=== PATIENT | male | born 1980 | race Caucasian/White ===

== ENCOUNTER → 2018-11-12 | Outpatient (CLI) | payer MEDICARE ==
[~2018-11-12] MED LIST: HYDR-1231 PO; OXYC-143 PO
--- NOTE | 2018-11-12 15:22 | Diagnostic Imaging Report ---
PROCEDURE: MRI right joint upper extremity without contrast. TECHNIQUE: Multiplanar, multisequence [id number] MRI of the right upper extremity was accomplished. INDICATION: Right shoulder injury. COMPARISON: None. FINDINGS: No acute fracture or dislocation is seen in the right shoulder. Alignment is normal. Small subcortical cyst-like changes are seen at the lateral humeral head. No glenohumeral joint effusion is seen. There is minimal fluid in the subacromial-subdeltoid bursa. The supraspinatus tendon demonstrates tendinosis with low-grade partial-thickness tearing at the bursal surface under the acromion, as well as at the articular surface at the insertion. A high-grade partial-thickness or full-thickness tear is not seen. The infraspinatus tendon demonstrates minimal undersurface fraying with no high-grade partial-thickness or full-thickness tear. The teres minor tendon is intact. There is tendinosis of the subscapularis tendon with low-grade partial-thickness tearing distally at the insertion. The long head of the biceps tendon appears normal in course and signal. The glenoid labrum is suboptimally evaluated in the absence of intra-articular contrast. No para-labral cysts are seen. The acromion has a curved undersurface without hooking. The coracoclavicular and coracoacromial ligaments are intact. There are moderate degenerative changes in the right acromioclavicular joint. The soft tissues about the right shoulder are otherwise unremarkable. IMPRESSION: 1. Areas of low-grade partial-thickness tearing in the right rotator cuff with no high-grade partial-thickness or full-thickness tear seen. 2. Moderate degenerative changes in the right acromioclavicular joint. 3. Mild subacromial-subdeltoid bursitis. Dictated by: Dictated on workstation # [id number]
== END ==
LOC: RAD 14:09
PROVIDERS: ATTEND Family Medicine
DX: S46.011A Strain of muscle(s) and tendon(s) of the rotator cuff of right shoulder, initial encounter (principal); M19.011 Primary osteoarthritis, right shoulder; M75.51 Bursitis of right shoulder
CPT/HCPCS: 73221

== ENCOUNTER → 2019-04-15 | Outpatient (CLI) | payer MEDICARE ==
--- NOTE | 2019-04-15 19:07 | Diagnostic Imaging Report ---
PROCEDURE: MRI right joint upper extremity without contrast. TECHNIQUE: Multiplanar, multisequence non contrast-enhanced MRI of the right upper extremity was accomplished. INDICATION: Injury to the right elbow and pain. The marrow signal intensity of the distal humerus as well as the proximal radius and ulna appears normal. No marrow edema or fracture is seen. No elbow joint effusion is detected. Triceps tendon appears to be intact. The biceps and the brachialis tendons appear to be intact. Flexor and extensor mechanism appears unremarkable. Medial and lateral collateral ligament complexes appear to be intact. IMPRESSION: Unremarkable MRI of the right elbow. Dictated by: Dictated on workstation # [id number]
== END ==
LOC: RAD 17:40
PROVIDERS: ATTEND Family Medicine
DX: S59.901A Unspecified injury of right elbow, initial encounter (principal)
CPT/HCPCS: 73221

== ENCOUNTER → 2020-03-05 | Outpatient (CLI) | payer MEDICARE ==
[~2020-03-05] MED LIST changes: +CATHETER FLUSH 10 ML SYR IV PRN; +GADOBUTROL 10 MMOL/10 ML (GADAVIST) VIAL IV ONE
--- NOTE | 2020-03-05 11:21 | Diagnostic Imaging Report ---
Clinical Indication: Patient with increased spine pain. Patient has had stem cell therapy, paraplegic but able to walk with devices. Exams: 1: MRI of the thoracic spine performed without and with 10 mL of Gadavist IV contrast. Sequences include sagittal T2, sagittal T1, sagittal T2 fat-sat, axial T2, axial T1, axial T1 post IV contrast, and sagittal T1 fat-sat post IV contrast. 2: MRI of the lumbar spine performed without and with IV contrast in conjunction with MRI of the thoracic spine. Sequences include sagittal T2, sagittal T1, sagittal T2 fat-sat, axial T2, axial T1, sagittal T1 fat-sat post IV contrast, and axial T1 post IV contrast. COMPARISON: CT scan of the thoracic and lumbar spine with contrast dated 03/19/2014. FINDINGS: There is no abnormal IV contrast enhancement seen on the MRI of the thoracic and lumbar spine. There are postop changes to the thoracolumbar spine seen with direct left lateral fusion from the T11-L1 with strut graft in place at the T12 region. There is susceptibility artifact seen on the thoracic and lumbar MRI. This is better seen on comparison CT scan. There is minimal kyphosis centered at the T12 level. There is decreased cord caliber with intramedullary increased T2 signal seen at the T12 vertebral body level involving the conus medullaris. Conus medullaris tip is seen roughly at the mid T12 level. The remainder of the thoracic cord has normal cord caliber with no abnormal signal. The remainder of the cauda equina nerve roots are unremarkable. THORACIC SPINE: Thoracic spine has normal alignment with no acute fracture or dislocation. There is a small left paracentral disc bulge at the T7-T8 disc space region which causes minimal encroachment upon the central canal. There is no other significant thoracic disc bulge seen. There is a chronic compression deformity involving the upper endplates of the T2, T3, and T4 vertebrae. This is also noted on the prior CT and stable. The thoracic spine shows no significant central canal or neural foramen narrowing. The interbody disc heights are within normal limits. There is no significant paraspinal soft tissue abnormality. LUMBAR SPINE: Lumbar spine is normal in alignment with no acute fracture or dislocation. L1-L2: Unremarkable. L2-L3: There is no significant posterior disc bulge. There is no significant central spinal canal or neural foramen narrowing. L3-L4: Unremarkable. L4-L5: There is a small broad posterior disk bulge. There is no significant central canal narrowing. There is mild to moderate right neural foramen narrowing and mild left neural foramen narrowing. L5-S1: There is mild loss of disc space height. There is chronic mild compression deformity of the inferior endplate of the L5 vertebra. There is no significant central canal or neural foramen narrowing. IMPRESSION: 1: Again seen, T12-L1 direct left lateral interbody fusion with strut graft at the T12 level. There is a susceptibility artifact associated with this area. The hardware is better seen on the comparison CT scan. 2: There is no abnormal IV contrast enhancement seen on this exam. 3: There is thoracic and lumbar spine degenerative disease, as described above. 4: There is myelomalacia involving the distal thoracic spinal cord/conus medullaris. Dictated by: Dictated on workstation # [id number]
== END ==
LOC: RAD 08:00
DX: M47.814 Spondylosis without myelopathy or radiculopathy, thoracic region (principal); M47.816 Spondylosis without myelopathy or radiculopathy, lumbar region; M51.37 Other intervertebral disc degeneration, lumbosacral region; M43.8X7 Other specified deforming dorsopathies, lumbosacral region; M51.26 Other intervertebral disc displacement, lumbar region; M48.061 Spinal stenosis, lumbar region without neurogenic claudication; M51.24 Other intervertebral disc displacement, thoracic region; M43.8X4 Other specified deforming dorsopathies, thoracic region; G82.20 Paraplegia, unspecified; K59.2 Neurogenic bowel, not elsewhere classified; N31.9 Neuromuscular dysfunction of bladder, unspecified; Z98.1 Arthrodesis status
CPT/HCPCS: 72157; 72158

== ENCOUNTER 2021-07-27 13:30 | Observation (INO) | payer OTHER, MEDICARE ==
[~2021-07-27] VITALS: Ht 195.6 cm; Wt 97.5 kg
[~2021-07-27 13:30] MED LIST changes: -CATHETER FLUSH 10 ML SYR IV PRN; -GADOBUTROL 10 MMOL/10 ML (GADAVIST) VIAL IV ONE
[2021-07-27] MEDS ORDERED: ORPHENADRINE 60 MG/2 ML (NORFLEX) AMP (ED ONLY) IM ONE (13:45)
[2021-07-27] MEDS ORDERED: KETOROLAC 60 MG/2 ML VIAL IM ONE (13:45)
--- NOTE | 2021-07-27 13:49 | ED Back Pain ---
General Stated Complaint: FALL - L LEG PAIN Source of Information: Patient Exam Limitations: No Limitations (RIRI BOURNE) History of Present Illness Date Seen by Provider: Jul 27, 2021 Time Seen by Provider: 13:43 Initial Comments Patient is a 41-year-old male who presents ED with left leg pain. Patient is paraplegic. Does have some feeling to his lower extremities. He Is able to stand but uses a walker. He does ambulate with walker. Slipped 1 hour ago while going to daycare to pickling grader his daughter. He states his left leg folded inwards and landed awkwardly on his leg. Reports contusion or possible fracture to his mid lockwood. Reports zapping type pain in his lower legs. Denies taking thing for pain. Does wear a brace daily. History of previous fracture in his right leg secondary to a fall. Denies hit his head, loss conscious, nausea, vomiting, diarrhea, fever, chills. (RIRI BOURNE) Allergies and Home Medications Allergies Coded Allergies: Penicillins (Unverified Allergy, Unknown, 11/04/14) erythromycin base (Unverified Allergy, Unknown, 11/04/14) Patient Home Medication List Home Medication List Reviewed: Yes (RIRI BOURNE) Oxycodone Hcl/Acetaminophen (Oxycodone-Apap 7.5/325 Mg Tab) 1 Tab Tablet, 1 TAB PO Q4H PRN for PAIN Prescribed by: ALEXX RIVAS on 11/04/14 8721 Review of Systems Constitutional: No chills, No diaphoresis, No dizziness, No fever, No malaise EENTM: No blurred vision, No eye pain Respiratory: No cough, No dyspnea on exertion Cardiovascular: No chest pain Gastrointestinal: No nausea, No vomiting Genitourinary: No decreased output, No discharge Musculoskeletal: No back pain, No joint pain; muscle pain, muscle stiffness Skin: change in color (RIRI BOURNE) Past Klcther-Wfqyql-Tahbdm Hx Past Medical History Adenoidectomy, Tonsillectomy Spinal Cord Injury (RIRI BOURNE) Family Medical History No Pertinent Family Hx (RIRI BOURNE) Physical Exam Vital Signs Vital Signs - First Documented 07/27/21 13:40 Temp 36.3 Pulse 95 Resp 20 B/P (MAP) 132/84 (100) Pulse Ox 98 O2 Delivery Room Air (NIKKI ROMERO MD) Vital Signs Capillary Refill : (RIRI BOURNE) Height, Weight, BMI Height: 6'5" Weight: 220lbs. oz. 99.000028sg; BMI Method:Stated General Appearance: No Apparent Distress, WD/WN HEENT: PERRL/EOMI, TMs Normal, Normal ENT Inspection Neck: Full Range of Motion, Normal Inspection, Non Tender, Supple Cardiovascular: Regular Rate, Rhythm, No Edema, No Gallop, No Murmur Respiratory: Chest Non Tender, Lungs Clear, Normal Breath Sounds, No Accessory Muscle Use Gastrointestinal: Normal Bowel Sounds, No Pulsatile Mass, Non Tender, Soft Back: Normal Inspection, No CVA Tenderness, No Vertebral Tenderness Extremity: Other (Left mid lockwood hematoma, subtle deformity with tenderness. Ankle tenderness. Limited range of motion. Subtle sensation on palpation) (RIRI BOURNE) Progress/Results/Core Measures Results/Orders Medications Given in ED Current Medications Medications Dose Ordered Sig/Bonnie Route Start Time Stop Time Status Last Admin Dose Admin Acetaminophen/ Hydrocodone Bitart 1 ea ONCE ONCE PO 07/27/21 14:15 07/27/21 14:16 DC 07/27/21 14:06 1 EA (NIKKI ROMERO MD) Vital Signs/I&O 07/27/21 13:40 Temp 36.3 Pulse 95 Resp 20 B/P (MAP) 132/84 (100) Pulse Ox 98 O2 Delivery Room Air (NIKKI ROMERO MD) Departure Communication (Admissions) Time/Spoke to Admitting Phy: 15:18 Unstable left lower leg fracture. Discussed patient with Dr. Malik who recommends n.p.o. after midnight and surgery tomorrow. Admit to observation. Neurovascular intact left Patient states he does walk. Patient uses afo braces. Patient was placed in a long-leg posterior splint. Patient was given a dose of pain medication. Lab work pending. Dr. Malik will put acute orders in. Neurovascularly intact pre and post splint. No evidence of compartment syndrome. (RIRI BOURNE) Impression Primary Impression: Leg fracture, left Disposition: 09 ADMITTED INPATIENT Condition: Stable Admissions Decision to Admit Reason: Admit from ER (General) Decision to Admit/Date: Jul 27, 2021 Time/Decision to Admit Time: 15:18 (RIRI BOURNE) Departure-Patient Inst. Referrals: KAITLYNN ROCHA MD (PCP/Family) Primary Care Physician ATTENDING PHYSICIAN NOTE: I was physically present as attending physician in the emergency department during the care of this patient, but I was not directly involved in the decision making or delivery of care for this patient. (NIKKI ROMERO MD) RIRI BOURNE Jul 27, 2021 13:48 NIKKI ROMERO MD Jul 27, 2021 20:59
[2021-07-27] MEDS ORDERED: HYDROcodone/APAP 5 MG/325 MG (LORTAB) TAB PO ONE (14:15)
--- NOTE | 2021-07-27 14:44 | Diagnostic Imaging Report ---
INDICATION: Fall. Injury. Pain COMPARISON: None FINDINGS: 3 radiographic views of the left ankle were obtained and demonstrate multiple acute fractures. There is acute oblique oriented fracture of the mid to distal fibular shaft. There is mild medial displacement of the distal fracture fragment. Note is also made of acute nondisplaced obliquely oriented fracture of the distal fibular shaft. There is also acute nondisplaced fracture through the base of the medial malleolus. Additionally, note is made of mild lateral subluxation of the talus in respect to the tibia suggestive of underlying ankle instability. No unexpected radiopaque foreign bodies are seen. IMPRESSION: 1. Multiple acute fractures of the left tibia and fibula as described above. 2. Disruption of ankle mortise. Dictated by: Dictated on workstation # [id number]
--- NOTE | 2021-07-27 15:01 | Diagnostic Imaging Report ---
INDICATION: Fall. Pain. Injury. COMPARISON: 07/27/2021. FINDINGS: Multiple radiographic views of the left tibia and fibula were obtained. There is acute fracture involving the junction of the mid and distal third portions of the fibular shaft. There is mild medial displacement of the distal fracture fragment. Acute nondisplaced fracture through the base of the medial malleolus of the distal tibia is also noted. Additionally, there is acute obliquely oriented minimally displaced fracture of the distal fibular shaft. Disruption of the ankle mortise is seen on dedicated ankle radiographs is much less conspicuous on this exam. No unexpected radiopaque foreign bodies are seen. IMPRESSION: 1. Multiple acute fractures of the left tibia and fibula as described above. Dictated by: Dictated on workstation # [id number]
[2021-07-27 15:42] LABS: BASOPHILS % (AUTO) 0 % (0-10); EOSINOPHILS # (AUTO) 0.2 10^3/uL (0.0-0.3); EOSINOPHILS % (AUTO) 2 % (0-10); HEMATOCRIT 49 % (40-54); HEMOGLOBIN 16.2 g/dL (13.3-17.7); LYMPHOCYTES # (AUTO) 2.5 10^3/uL (1.0-4.0); LYMPHOCYTES % (AUTO) 24 % (12-44); MEAN CORPUSCULAR HEMOGLOBIN 30 pg (25-34); MEAN CORPUSCULAR HGB CONC 33 g/dL (32-36); MEAN CORPUSCULAR VOLUME 90 fL (80-99); MEAN PLATELET VOLUME 9.6 fL (9.0-12.2); MONOCYTES # (AUTO) 0.5 10^3/uL (0.0-1.0); MONOCYTES % (AUTO) 5 % (0-12); NEUTROPHILS # (AUTO) 6.9 10^3/uL (1.8-7.8); NEUTROPHILS % (AUTO) 68 % (42-75); PLATELET COUNT 307 10^3/uL (130-400); WHITE BLOOD COUNT 10.2 10^3/uL (4.3-11.0)
[2021-07-27 15:54] LABS: ALBUMIN 4.8 GM/DL (3.2-4.5); CHLORIDE 105 MMOL/L (98-107); POTASSIUM 4.3 MMOL/L (3.6-5.0); SODIUM 139 MMOL/L (135-145)
[2021-07-27 15:56] LABS: CALCIUM 9.5 MG/DL (8.5-10.1)
[2021-07-27 15:57] LABS: GLUCOSE 88 MG/DL (70-105); TOTAL PROTEIN 8.5 GM/DL (6.4-8.2)
[2021-07-27 15:58] LABS: CARBON DIOXIDE 22 MMOL/L (21-32)
[2021-07-27 15:59] LABS: BILIRUBIN,TOTAL 0.5 MG/DL (0.1-1.0)
[2021-07-27 16:00] LABS: ALKALINE PHOSPHATASE 62 U/L (40-136); GFR ESTIMATED 115
[2021-07-27 16:01] LABS: BUN/CREATININE RATIO 21
[2021-07-27 16:03] LABS: ALANINE AMINOTRANSFERASE 40 U/L (0-55)
[2021-07-27 17:18] VITALS: BP 121/75
[2021-07-27 19:31] VITALS: BP 119/67
[2021-07-27] MEDS: morphine INJ 4 MG/ML 1 ML (VIAL/SYRINGE) IVP PRN (21:53)
[2021-07-27 23:50] VITALS: BP 105/61
[2021-07-28] VITALS (12 sets, daily range): BP systolic 98–135; BP diastolic 59–93
[2021-07-28] MEDS: morphine INJ 4 MG/ML 1 ML (VIAL/SYRINGE) IVP PRN ×6 (01:27→18:23)
--- NOTE | 2021-07-28 08:15 | History & Physical Orthopedic ---
History and Physical Subjective Date of Exam 07/28/21 Chief Complaint Left Leg Injury HPI/Events since last exam slip and fall yesterday, seen in ER for instability of ankle, diagnosed with left tibia and fibula fractures, I was asked to manage the fractures, situation complicated by patient's history of SCI with loss of sensation and no motor movement below his knee, he does still ambulate with AFO's and a walker Medical, Surgical History Adenoidectomy, Tonsillectomy Spinal Cord Injury Social History Noncontributory Family History Noncontributory Review of Systems - Allergies: Coded Allergies: Penicillins (Unverified Allergy, Unknown, 11/04/14) erythromycin base (Unverified Allergy, Unknown, 11/04/14) Home Meds Active Scripts Oxycodone Hcl/Acetaminophen (Oxycodone-Apap 7.5/325 Mg Tab) 1 Tab Tablet, 1 TAB PO Q4H PRN for PAIN, #20 TAB 0 Refills Prov:ALEXX RIVAS 11/04/14 Objective Exam Cardiovascular: S1 and S2 present Respiratory: Normal nonlabored breathing with symmetric chest expansion Gastrointestinal: Soft, NT Extremities: Left leg in long leg splint, not able to move toes due to SCI, cap refill brisk Neurologic: No sensation to light touch in left foot Vital Signs Vital Signs Date Time Temp Pulse Resp B/P (MAP) Pulse Ox O2 Delivery O2 Flow Rate FiO2 07/28/21 04:12 36.6 89 18 118/72 (87) 95 Room Air 07/27/21 23:50 36.5 91 18 105/61 (76) 97 Room Air 07/27/21 21:00 97 Room Air 07/27/21 19:31 36.7 83 19 119/67 (84) 96 Room Air 07/27/21 17:18 96 Room Air 07/27/21 17:18 36.8 83 18 121/75 (90) 96 Room Air 07/27/21 16:52 82 20 110/72 99 Room Air 07/27/21 13:40 36.3 95 20 132/84 (100) 98 Room Air I & O 07/28/21 07:00 Intake Total 600 ml Output Total 550 ml Balance 50 ml Lab Results Laboratory Tests 07/27/21 15:35: White Blood Count 10.2, Red Blood Count 5.41, Hemoglobin 16.2, Hematocrit 49, Mean Corpuscular Volume 90, Mean Corpuscular Hemoglobin 30, Mean Corpuscular Hemoglobin Concent 33, Red Cell Distribution Width 12.1, Platelet Count 307, Mean Platelet Volume 9.6, Immature Granulocyte % (Auto) 1, Neutrophils (%) (Auto) 68, Lymphocytes (%) (Auto) 24, Monocytes (%) (Auto) 5, Eosinophils (%) (Auto) 2, Basophils (%) (Auto) 0, Neutrophils # (Auto) 6.9, Lymphocytes # (Auto) 2.5, Monocytes # (Auto) 0.5, Eosinophils # (Auto) 0.2, Basophils # (Auto) 0.0, Immature Granulocyte # (Auto) 0.1, Sodium Level 139, Potassium Level 4.3, Chloride Level 105, Carbon Dioxide Level 22, Anion Gap 12, Blood Urea Nitrogen 17, Creatinine 0.80, Estimat Glomerular Filtration Rate 115, BUN/Creatinine Ratio 21, Glucose Level 88, Calcium Level 9.5, Corrected Calcium , Total Bilirubin 0.5, Aspartate Amino Transf (AST/SGOT) 34, Alanine Aminotransferase (ALT/SGPT) 40, Alkaline Phosphatase 62, Total Protein 8.5H, Albumin 4.8H 07/27/21 22:06: SARS-CoV-2 RNA (RT-PCR) Not Detected Imaging Multiple views of the left tibia and fibula were reviewed dated 07/27/21 and demonstrated a short oblique fracture of the junction of the middle and distal thirds of the tibia, nondisplaced medial malleolus fracture below the joint level, and a distal fibula fracture Assessment and Plan Assessment Left Tibial Shaft Fracture Left Medial Malleolus Fracture Left Distal Fibula Fracture Problem List Left Tibial Shaft Fracture Left Medial Malleolus Fracture Left Distal Fibula Fracture Plan I have recommended intramedullary nailing of the left tibial shaft fracture, possible fixation of the medial malleolus fracture and possible fixation of the distal fibula fracture. Nature of the procedure and the postoperative course were discussed. Risks and benefits were discussed. Discussed limiting weightbearing for a period of time secondary to fractures around the ankle. Chip dickerson plan to proceed later this AM. Final Diagonsis Left Tibial Shaft Fracture Left Medial Malleolus Fracture Left Distal Fibula Fracture Level of the visit: Level 3 (preop) ZAINA ARREOLA MD Jul 28, 2021 08:15
[2021-07-28] MEDS ORDERED: LIDOCAINE PF 2% 5 ML (XYLOCAINE) VIAL ONE (08:16)
[2021-07-28] MEDS ORDERED: ONDANSETRON 4 MG/2 ML (SDV) Z0FRAN ONE (08:16)
[2021-07-28] MEDS ORDERED: SEVOFLURANE (ULTANE) 15 ML INHAL SOLN ONE ×3 (08:16→11:36)
[2021-07-28] MEDS ORDERED: fentaNYL INJ 100 MCG/2 ML AMP ONE (08:16)
[2021-07-28] MEDS ORDERED: proPOfol 200 MG/20 ML (DIPRIVAN) VIAL IV ONE ×2 (08:16→11:11)
[2021-07-28] MEDS ORDERED: MIDAZOLAM 2 MG/2 ML (VERSED) VIAL ONE (08:16)
[2021-07-28] MEDS ORDERED: CLINDAMYCIN 600 MG/50 ML IVPB 50 ML IV NR (09:00)
[2021-07-28] MEDS ORDERED: CLINDAMYCIN 600 MG/4ML (CLEOCIN) VIAL ONE (09:27)
[2021-07-28] MEDS ORDERED: NS (IVPB) 100 ML ONE (09:27)
[2021-07-28] MEDS ORDERED: NEO/POLY/BAC (NEOSPORIN) OINT 15 GM TUBE ONE (09:28)
[2021-07-28] MEDS: LACTATED RINGERS 1,000 ML IV PRN ×2 (09:32→10:50)
[2021-07-28] MEDS ORDERED: ROCURONIUM 50 MG/5 ML (ZEMURON) VIAL IV ONE (10:18)
[2021-07-28] MEDS: BUPIVACAINE 0.25% 30 ML (SENSORCAINE) VIAL ONE ×2 (10:59→12:00)
[2021-07-28] MEDS ORDERED: ONDANSETRON 4 MG/2 ML (SDV) Z0FRAN IVP PRN (12:45)
[2021-07-28] MEDS ORDERED: MEPERIDINE (DEMEROL) INJ 50 MG/ML IVP ONE (12:45)
[2021-07-28] MEDS ORDERED: fentaNYL INJ 100 MCG/2 ML AMP IVP ONE (12:45)
[2021-07-28] MEDS ORDERED: morphine INJ 10 MG/ML 1ML (SYR OR VIAL) IVP ONE (12:45)
--- NOTE | 2021-07-28 12:53 | Operative Report - Ortho ---
Operative Report Surgeon (s)/Plating Stripper (s) Surgeon ZAINA ARREOLA MD Plating Stripper n/a Pre-Operative Diagnosis Left Tibial Shaft Fracture, Left Bimalleolar Ankle Fracture Post-Operative Diagnosis same Operative Report Date of Procedure: Jul 28, 2021 Name of Procedure Performed: 1) Intramedullary Nailing of Left Tibial Shaft Fracture 2) Open Reduction and Internal Fixation of Left Bimalleolar Ankle Fracture Description & Findings After obtaining informed consent and marking the patient, patient did receive intravenous antibiotics. Taken to the operating room and general anesthesia was induced. Surgical timeout was taken. The left lower extremity was prepped and draped in the usual sterile fashion. Attention was initially turned to the tibia fracture, incision was made from inferior border of patella to anterior tibial tubercle. It was chose to split the patellar tendon. Awl was used to make an entry point. Guide wire was inserted down to the level of the fracture. Fracture was reduced. Guide wire was passed across the fracture site and positioned at the physeal scar. Measurement was taken which was 400 mm. Sequential reaming was began with a 9 and reamed to a 12.5. An 11 mm by 390 mm nail was selected and assembled on the back table. The nail was inserted over the guide wire initially by hand and then with a mallet. C-arm was used to visualize the nail passing across the fracture site and reduction was maintained. Nail was seated just proximal to the physeal scar. 2 distal screws were placed through the distal interlocks using free hand technique. The nail was then back tapped to compress the fracture site. 2 screws were then placed through the provided guide with the 2nd being in a dynamic position. Wounds were irrigated with normal saline. The arthrotomy was closed in layered fashion with 0 ethibond, 2-0 vicryl, and a combination of 3-0 and 4-0 nylon. Attention was turned to the distal fibula fracture, incision was made centered over the fracture. Dissection was carried down to the fracture and a periosteal elevator was used to expose the fibula proximally and distally. The fracture was provisionally reduced using clamps. A [employer] distal fibular plate was selected and placed. A wire was placed distally and proximally to position and temporarily hold the plate. A nonlocking screw was placed in the diaphysis of the fibula. A nonlocking screw was then placed distally. C-arm demonstrated good position of the plate with near anatomic reduction of the fracture. Locking screws were used to fill the distal holes of the plate. Two additional locking screws were placed in the proximal portion of the plate. Wires and clamp were removed. C-arm demonstrated appropriate position of the plate and screws and maintained reduction of the fracture. The medial malleolar fracture was evaluated and essentially was a large avulsion in a nondisplaced position. It did not allow widening of the clear space or disruption of the mortise. Final C-arm images were obtained in the AP, mortise, and lateral views and demonstrated appropriate reduction of the fractures and hardware in good position. Images were transferred to PACS. Wound was irrigated with normal saline. Closed with 0 vicryl, 3-0 vicryl, and 3-0 nylon. Wounds were injected with local anesthetic. Dressed with xeroform, 4x4s, ABD, cast padding, soft roll, posterior splint, and JOSE wrap. Patient tolerated the procedure well and was stable to the recovery room. Anesthesia Type General Estimated Blood Loss 100 mL Specimen(s) collected/removed None ZAINA ARREOLA MD Jul 28, 2021 12:53
--- NOTE | 2021-07-28 12:57 | Diagnostic Imaging Report ---
INDICATION: Tibial and fibular fracture. COMPARISON: 07/27/2021. TOTAL FLUOROSCOPY TIME: 96 seconds. TOTAL NUMBER OF FLUOROSCOPIC IMAGES SAVED: 7. FINDINGS: Multiple intraoperative image intensifier views of the left tibia and fibula were obtained during ORIF. Images provided show placement of long intramedullary mary throughout the tibial shaft. Proximal distal anchor screws are noted. Orthopedic side-plate and screws are also seen traversing the lateral margins of the distal fibula. As a result, there is creation of near-anatomic alignment of the fracture fragments. Tibiotalar joint space appears appropriate. Please note, interpreting radiologist was not present during the procedure. IMPRESSION: 1. Fluoroscopic guidance provided during left lower leg ORIF. Dictated by: Dictated on workstation # [id number]
[2021-07-28] MEDS ORDERED: OXC5T PO (13:20)
[2021-07-28] MEDS ORDERED: ACETAMINOPHEN 500 MG TAB (TYLENOL) ONE (18:36)
[2021-07-28] MEDS ORDERED: ACETAMINOPHEN 500 MG TAB (TYLENOL) PO PRN (18:45)
[2021-07-29] VITALS: BP 110/65
[2021-07-29 03:59] VITALS: BP 100/61
[2021-07-29] MEDS ORDERED: CHLORASEPTIC SPRAY 177 ML LIQUID MC PRN (07:15)
[2021-07-29 08:00] VITALS: BP 115/67
--- NOTE | 2021-07-29 13:30 | Anesthesia-General Post-Op ---
General Patient Condition Mental Status/LOC: Same as Preop Cardiovascular: Satisfactory Nausea/Vomiting: Absent Respiratory: Satisfactory Pain: Controlled Complications: Absent Post Op Complications Complications None Follow Up Care/Instructions Patient Instructions None needed. Anesthesia/Patient Condition Patient Condition Patient is doing well, no complaints, stable vital signs, no apparent adverse anesthesia problems. No complications reported per nursing. MAGNOLIA GAR CRNA Jul 29, 2021 13:29
== END 2021-07-29 11:34 | disposition home or self-care (01) ==
LOC: EDUNIT# 13:30 → ER 13:31 → 4TH 15:15
PROVIDERS: ADMIT Orthopaedic Surgery; ATTEND Orthopaedic Surgery
DX: S82.202A Unspecified fracture of shaft of left tibia, initial encounter for closed fracture (principal); S82.842A Displaced bimalleolar fracture of left lower leg, initial encounter for closed fracture; W01.0XXA Fall on same level from slipping, tripping and stumbling without subsequent striking against object, initial encounter
CPT/HCPCS: 27759; 27814; 29505; 73590; 73610; 76000; 80053; 85025; 87081; 87636; 99284; C1713 ×9; G0378; 36415

== ENCOUNTER → 2021-08-02 | Outpatient (CLI) | payer OTHER, MEDICARE ==
[~2021-08-02] MED LIST changes: +OXC5T PO
--- NOTE | 2021-08-02 13:46 | Diagnostic Imaging Report ---
EXAM: LUMBAR SPINE - 2-3 VIEWS. INDICATION: Back pain. Fall. COMPARISON: Thoracic spine radiographs also performed today. MRI lumbar spine 03/05/2020. FINDINGS: There are five lumbar-type vertebral bodies for the purposes of this report. There are rudimentary ribs at the designated T12 segment. Left lateral fusion with interbody cage device at T11-L1. Visualized hardware components are intact. Grade 1 retrolisthesis of L5 on S1. Vertebral body heights are preserved. No fracture is identified. Visualized pelvis is intact. No substantial spondylotic change. IMPRESSION: 1. No acute radiographic findings in the lumbar spine. 2. Left lateral fusion with cage device at T11-L1. No evidence of hardware failure. Dictated by: Dictated on workstation # [id number]
--- NOTE | 2021-08-02 13:49 | Diagnostic Imaging Report ---
EXAM: THORACIC SPINE, 2 VIEWS ONLY. INDICATION: Fall. Back pain. COMPARISON: MRI thoracic spine 03/05/2020. Lumbar spine radiographs also performed today. FINDINGS: Mild right apex thoracic curvature. Left lateral fusion with cage device at T11 through L1. Hardware components are intact. No evidence of loosening. Vertebral body heights appear preserved. Lateral view is limited by underpenetration. IMPRESSION: 1. Stable left lateral fusion with cage device at T11-L1. No evidence of hardware failure. 2. No acute radiographic findings in the thoracic spine. Dictated by: Dictated on workstation # [id number]
== END ==
LOC: RAD 11:22
PROVIDERS: ATTEND Physical Medicine & Rehabilitation
DX: M54.9 Dorsalgia, unspecified (principal); W19.XXXA Unspecified fall, initial encounter; Z98.1 Arthrodesis status
CPT/HCPCS: 72070; 72100

== ENCOUNTER → 2021-08-11 | Outpatient (CLI) | payer OTHER, MEDICARE | LOC: ORTHO 08:57 | PROVIDERS: ATTEND Orthopaedic Surgery | DX: Z47.89 Encounter for other orthopedic aftercare (principal) ==

== ENCOUNTER → 2021-09-01 | Outpatient (CLI) | payer OTHER, MEDICARE ==
--- NOTE | 2021-09-01 08:34 | Diagnostic Imaging Report ---
INDICATION: Tibial fracture AP and lateral views of left lower leg are obtained with comparison made to study of 07/27/2021. Intramedullary mary is now present in the tibia with normal alignment at the site of distal tibial shaft fracture. There has also been placement of lateral fibular plate with good alignment of fibular fracture fragments. No new abnormality is identified although there is juxta-articular demineralization at the ankle. IMPRESSION: Normal alignment post open reduction and internal fixation of distal tibial and fibular fractures. Dictated by: Dictated on workstation # [id number]
== END ==
LOC: ORTHO 08:03
PROVIDERS: ATTEND Orthopaedic Surgery
DX: Z47.89 Encounter for other orthopedic aftercare (principal); Z98.890 Other specified postprocedural states
CPT/HCPCS: 73590

== ENCOUNTER → 2021-09-29 | Outpatient (CLI) | payer OTHER, MEDICARE ==
--- NOTE | 2021-09-29 09:32 | Diagnostic Imaging Report ---
INDICATION: Fracture follow-up, pain. COMPARISON: 09/01/2021 TECHNIQUE: Four radiographs of the left tibia and fibula dated September 29, 2021. FINDINGS: Intramedullary mary is again identified transfixing previously noted mid to distal tibial shaft fracture. No evidence of hardware complication. Alignment appears stable from the prior examination. Minimal developing periosteal reaction is present. Lateral plate and screw fixation of previously noted distal fibular fracture is identified with fracture remaining in stable alignment without evidence of hardware complication. No new acute fracture. No destructive osseous process. No suspicious radiopaque foreign body. Osseous demineralization. IMPRESSION: Mild interval healing of previously noted internally fixated tibial shaft fracture with alignment remaining stable without hardware complication. Plate and screw fixation of previously noted distal fibular fracture remaining in stable alignment. No new acute osseous abnormality. Osseous demineralization, likely secondary to disuse. Dictated by: Dictated on workstation # [id number]
--- NOTE | 2021-09-29 10:01 | Diagnostic Imaging Report ---
INDICATION: Fracture follow-up, pain COMPARISON: Imaging from the same date as well as from 07/27/2021. TECHNIQUE: 3 radiographs of the left ankle dated 09/29/2021. FINDINGS: Lateral plate and screw fixation of previously noted distal fibular shaft fracture is identified. Intramedullary mary is identified transfixing previously noted mid to distal tibial shaft fracture. No evidence of hardware complication. The talar dome is unremarkable. The ankle mortise is symmetric. No new fracture or dislocation. Osseous structures appear diffusely demineralized. Mild soft tissue swelling about the ankle. No suspicious radiopaque foreign body. IMPRESSION: Internally fixated tibial and fibular fractures are identified without evidence of hardware complication or new acute osseous abnormality. Osseous demineralization, likely secondary to disuse. Mild soft tissue swelling. Dictated by: Dictated on workstation # [id number]
== END ==
LOC: ORTHO 08:15
PROVIDERS: ATTEND Orthopaedic Surgery
DX: S82.201D Unspecified fracture of shaft of right tibia, subsequent encounter for closed fracture with routine healing (principal); S82.401D Unspecified fracture of shaft of right fibula, subsequent encounter for closed fracture with routine healing; X58.XXXD Exposure to other specified factors, subsequent encounter
CPT/HCPCS: 73590; 73610

== ENCOUNTER → 2021-10-27 | Outpatient (CLI) | payer OTHER, MEDICARE ==
--- NOTE | 2021-10-27 08:51 | Diagnostic Imaging Report ---
Indication: Followup left tibial fracture. Time of Exam: 8:14 AM Comparison is made to prior radiograph from 09/29/2021. Frontal and lateral views of the left tibia and fibula were obtained. Intramedullary mary transfixes the mid shaft tibial fracture with the proximal and distal screws. Fracture does remain partly visible although there does appear to be some callus formation. Overall alignment is anatomic. Plate and screw transfixed distal fibular fracture. Alignment of the knee and ankle is normal. There is generalized demineralization. IMPRESSION: ORIF mid shaft tibial fracture and distal fibular fracture. Fracture line of the distal tibia does remain partially visible but there does appear to be some healing occurring. Alignment is anatomic. Dictated by: Dictated on workstation # [id number]
== END ==
LOC: ORTHO 08:07
PROVIDERS: ATTEND Orthopaedic Surgery
DX: Z47.89 Encounter for other orthopedic aftercare (principal)
CPT/HCPCS: 73590

== ENCOUNTER → 2021-12-13 | Outpatient (CLI) | payer OTHER, MEDICARE ==
--- NOTE | 2021-12-13 08:48 | Diagnostic Imaging Report ---
Indication: Follow-up left leg fractures. Time of Exam: 8:27 AM Correlation is made with prior radiograph from 10/27/2021. Intramedullary mary transfixes the fracture of the distal tibia. There does appear to be some increasing callus formation consistent with some healing although fracture line does remain clearly visible. Alignment is anatomic. The hardware is intact. The lateral plate and screws transfixing distal fibula. IMPRESSION: Healing distal tibial fracture. Fracture line does remain visible however. Dictated by: Dictated on workstation # [id number]
== END ==
LOC: ORTHO 08:19
PROVIDERS: ATTEND Orthopaedic Surgery
DX: Z47.89 Encounter for other orthopedic aftercare (principal); S82.302D Unspecified fracture of lower end of left tibia, subsequent encounter for closed fracture with routine healing; X58.XXXD Exposure to other specified factors, subsequent encounter
CPT/HCPCS: 73590; G0463; 99213

== ENCOUNTER 2022-07-23 19:40 | Emergency (ER) | payer OTHER, MEDICARE ==
[~2022-07-23] VITALS: Ht 195.6 cm; Wt 99.8 kg
[2022-07-23 19:48] VITALS: BP 136/85
--- NOTE | 2022-07-23 20:15 | ED Lower Extremity ---
General Chief Complaint: Lower Extremity Stated Complaint: LEFT ANKLE CHECK Nursing Triage Note: PT TO [facility] 7 VIA PERSONAL WC W CONCERN ABOUT LEFT ANKLE. PT IS AN INCOMPLETE PARAPLEGIC, DENIES INJ TO ANKLE, STATES IT LOOKS WEIRD TO HIM NOTICED TONGIHT. PT A&OX4. Source: patient Exam Limitations: no limitations (RIRI BOURNE) History of Present Illness Date Seen by Provider: Jul 23, 2022 Time Seen by Provider: 20:05 Initial Comments Patient is a 42-year-old male who who is paraplegic who presents to ED with prominence of his left lateral ankle. Patient fell last year resulting in a fracture to his ankle. Patient had a plate and screws placed by Dr. Malik. Patient does use a walker and is able to ambulate with assistance and AFOs. [facility] [employer] [facility] kids today as well as other activities but denies of any specific injury. He has limited sensation in the lower extremities. Patient took off his AFOs today and noticed a bony prominence to the left lateral ankle and was concerned. Patient denies ankle redness or swelling, fever, chills, chest pain, shortness of breath, nausea, vomiting, diarrhea. (RIRI BOURNE) Allergies and Home Medications Allergies Coded Allergies: Penicillins (Unverified Allergy, Unknown, 11/04/14) erythromycin base (Unverified Allergy, Unknown, 11/04/14) Patient Home Medication List Home Medication List Reviewed: Yes (RIRI BOURNE) Oxycodone Hcl (Oxyir Tablet) 5 Mg Tab, 5 MG PO Q4H PRN for PAIN-SEVERE (8-10) Prescribed by: ZAINA MALIK MD on 07/28/21 1320 Review of Systems Constitutional: No chills, No diaphoresis EENTM: No ear discharge, No double vision Respiratory: No cough, No dyspnea on exertion Cardiovascular: No chest pain Gastrointestinal: No abdominal pain, No diarrhea, No nausea, No vomiting Genitourinary: No decreased output, No discharge Musculoskeletal: No back pain; joint pain, joint swelling Skin: No change in color, No change in hair/nails (RIRI BOURNE) All Other Systems Reviewed Negative Unless Noted: Yes (RIRI BOURNE) Past Cxbkker-Haejck-Awdeoy Hx Patient Social History Tobacco Use?: No Use of E-Cig and/or Vaping dev: No Substance use?: No Alcohol Use?: No (RIRI BOURNE) Immunizations Up To Date Influenza Vaccine Up-to-Date: No; Not Current First/Initial COVID19 Vaccinat: NONE Second COVID19 Vaccination Addy: NONE Third COVID19 Vaccination Date: NONE COVID19 Vaccine Nutrition Partner: NONE (RIRI BOURNE) Past Medical History Surgery/Hospitalization HX: INCOMPLETE PARAPLEGIA Adenoidectomy, Tonsillectomy Currently Using CPAP: No Currently Using BIPAP: No Spinal Cord Injury (RIRI BOURNE) Family Medical History No Pertinent Family Hx (RIRI BOURNE) Physical Exam Vital Signs Vital Signs - First Documented 07/23/22 19:48 Temp 36.2 Pulse 88 Resp 20 B/P (MAP) 136/85 (102) Pulse Ox 98 O2 Delivery Room Air (NIKKI ROMERO MD) Vital Signs Capillary Refill : Less Than 3 Seconds (RIRI BOURNE) Height, Weight, BMI Height: 6'5" Weight: 220lbs. oz. 99.907570zr; 26.00 BMI Method:Stated General Appearance: WD/WN, no apparent distress HEENT: PERRL/EOMI, normal ENT inspection, TMs normal, pharynx normal Neck: non-tender, full range of motion, supple, normal inspection Cardiovascular: regular rate, rhythm, no edema, no gallop, no JVD Respiratory: chest non-tender, lungs clear, normal breath sounds, no respiratory distress, no accessory muscle use Gastrointestinal: normal bowel sounds, non tender, soft, no organomegaly Back: normal inspection, no CVA tenderness Ankles: left ankle soft tissue tenderness, left ankle other (Bony prominence to left lateral malleolus.) Feet: bilateral foot other (Muscle atrophy bilateral lower extremity. +1 pedal pulses bilateral.) Neurologic/Psychiatric: grief counsellor II-XII nml as tested, alert, normal mood/affect, oriented x 3 (RIRI BOURNE) Progress/Results/Core Measures Results/Orders Vital Signs/I&O 07/23/22 19:48 Temp 36.2 Pulse 88 Resp 20 B/P (MAP) 136/85 (102) Pulse Ox 98 O2 Delivery Room Air (NIKKI ROMERO MD) Blood Pressure Mean: 102 Departure Communication (PCP) X-ray was negative for fracture. Hardware noted with No obvious lucency. Discussed all results with patient. Patient does use a stand-up walker and walks with his AFOs. Patient has been walking more today than normal. Patient is likely getting irritation from his brace on his ankle. May have to make some adjustments to the brace. Continue monitoring. Orthopedic outpatient follow-up as needed. Return precaution were discussed with patient (RIRI BOURNE) Impression Primary Impression: Ankle pain Disposition: 01 HOME, SELF-CARE Condition: Stable Departure-Patient Inst. Decision time for Depature: 20:09 (RIRI BOURNE) Referrals: ZAINA MALIK MD, LISA A MD (PCP/Family) Primary Care Physician Patient Instructions: Joint Pain ATTENDING PHYSICIAN NOTE: I was physically present as attending physician in the emergency department during the care of this patient, but I was not directly involved in the decision making or delivery of care for this patient. (NIKKI ROMERO MD) RIRI BOURNE Jul 23, 2022 20:15 NIKKI ROMERO MD Jul 24, 2022 11:22
--- NOTE | 2022-07-23 22:27 | Diagnostic Imaging Report ---
CLINICAL INDICATION: Patient with lateral ankle pain. EXAM: X-ray of the left ankle, 4 views. COMPARISON: X-ray of the left ankle dated 09/29/2021. FINDINGS: Again seen is sideplate and screws affixing the distal fibular region which appears healed. Intramedullary mary with cross locking screws involving the tibia is seen affixing the healed tibial diaphyseal fracture. There is no interval acute fracture seen on this exam. There is osteopenia involving the ankle. Ankle mortise and syndesmotic joints are unremarkable. IMPRESSION: 1: There is no interval acute fracture involving the left ankle. 2: Open reduction internal fixation of the tibia and fibula are seen with healed fractures. Dictated by: Dictated on workstation # [id number]
== END 2022-07-23 20:48 | disposition home or self-care (01) ==
LOC: EDUNIT# 19:40 → ER 19:43
DX: M25.572 Pain in left ankle and joints of left foot (principal); Z28.310 Unvaccinated for COVID-19; Z87.828 Personal history of other (healed) physical injury and trauma; Z98.890 Other specified postprocedural states
CPT/HCPCS: 73610

== ENCOUNTER → 2023-01-09 | Day surgery (SDC) | payer MEDICARE, MEDICAID ==
[~2023-01-09] VITALS: Ht 195.6 cm; Wt 99.8 kg
[~2023-01-09] MED LIST changes: +LIDOCAINE 1% INJ 20 ML VIAL INJ ONE; +LIDOCAINE 1% INJ 20 ML VIAL ONE
[2023-01-09 08:10] VITALS: BP 112/75
--- NOTE | 2023-01-09 13:44 | OPERATIVE REPORT ---
DATE OF SERVICE: 01/09/2023 INDICATIONS: The patient is a 42-year-old gentleman, who has infrequent palpitations that are very bothersome to him. Implantable loop recorder implantation was carried out today after having obtained an informed consent. DESCRIPTION OF PROCEDURE: [facility] The left prepectoral area was prepared and draped in the usual sterile fashion. A 1% lidocaine was used for local anesthesia. Tools provided with the [employer] LINQ II device were used to make a subcutaneous pocket anterior to the fourth left intercostal space, into which the device was placed and the wound edges were closed using Dermabond and Steri-Strips. He tolerated the procedure well. The serial number of the devices is [id number]. Job ID: [id number] DocumentID: [id number] Dictated Date: 01/09/2023 09:02:33 Credit Clerk Date: 01/09/2023 13:42:00 Dictated By: LESLYE MOJICA MD; EYAL; FACP; FACC;
== END ==
LOC: CATH 07:41
PROVIDERS: ATTEND Internal Medicine Cardiovascular Disease
DX: R00.2 Palpitations (principal); M79.605 Pain in left leg; T14.8XXS Other injury of unspecified body region, sequela; G47.419 Narcolepsy without cataplexy; I34.1 Nonrheumatic mitral (valve) prolapse; Z28.310 Unvaccinated for COVID-19
CPT/HCPCS: 33285; C1764